=== PATIENT | female | born 1995 | race Caucasian/White ===

== ENCOUNTER 2019-11-26 18:54 | Emergency (ER) | payer OTHER, SELFPAY ==
[2019-11-26 19:00] VITALS: BP 116/63; PULSE 95; RESP 16; TEMP 36.4; O2SAT 99
--- NOTE | 2019-11-26 19:12 | ED.BACK ---
HPI - Back Pain/Injury General Chief Complaint: Back Pain/Injury Stated Complaint: back pain Time Seen by Provider: 11/26/19 19:13 Source: patient and RN notes reviewed History of Present Illness HPI Narrative: Patient is a 24-year-old female that presents the urgent care with complaints of right low back pain. Patient states that it started over the last few days and she called her OB and they were not impressed . Patient is currently 37 weeks . Patient states that her OB is aware and patient does not feel like she is having contractions or any signs or symptoms of labor. Patient denies any urinary symptoms. Patient states it is difficult to walk after sitting for long periods due to the pain radiating down the right leg. Patient states it is difficult to put on socks or shoes due to the pain. Patient denies any history of sciatica. No other acute complaints. No acute distress noted. Patient read the plan of care. Related Data Home Medications Medication Instructions Recorded Confirmed ferrous sulfate [Iron (ferrous 325 mg PO DAILY 11/24/19 11/26/19 sulfate)] valacyclovir [Valtrex] 500 mg PO DAILY 11/24/19 11/26/19 Allergies Allergy/AdvReac Type Severity Reaction Status Date / Time Oyster Allergy Severe HIVES,THROAT Uncoded 11/26/19 19:05 [place] Review of Systems Review of Systems: Narrative: CONSTITUTIONAL: Denies fever, chills, or sweats. EYES: Denies visual changes, redness, or discharge. ENT: Denies rhinorrhea, congestion, sore throat, or otalgia. CARDIOVASCULAR: Denies chest pain, palpitations, or edema. RESPIRATORY: Denies cough or dyspnea. GASTROINTESTINAL: Denies abdominal pain, nausea, vomiting, or diarrhea. GENITOURINARY: Denies dysuria or hematuria. SKIN: Denies rash or itching. MUSCULOSKELETAL: Reports of low right back pain radiating down the right leg NEUROLOGIC: Denies headache, numbness, or weakness. All other systems reviewed are negative, except as documented in HPI. [facility] Family History Family History (Updated 11/24/19 @ 13:33 by Joslyn Corrales RN) Father Diabetes mellitus Social History Social History Substance use: never Gender identity (if verbalized by the patient): Female Spiritual care concerns: No Comments At the time of my signature, I reviewed and agree with the nursing past medical, surgical, social, and family history. There is no relevant family history pertinent to the patient complaint. Exam Narrative: Exam Narrative: GENERAL: This is a well-nourished, well-developed patient, in no apparent distress. HEAD: normocephalic, atraumatic. EYES: PERRL. Sclera clear/white. Vision is grossly intact. EARS: External ears normal NOSE: External nose normal with no obvious nasal discharge THROAT: Mucous membranes moist NECK: Neck supple CARDIOVASCULAR: Regular rate and rhythm without murmurs, gallops, or rubs. RESPIRATORY: Clear to auscultation. Breath sounds equal bilaterally. No wheezes, rales, or rhonchi. SKIN: warm, intact with no suspicious lesions or rash, good texture and turgor. NEURO: awake, alert, and oriented to person, place and time. There were no obvious focal neurologic abnormalities. EXTREMITIES: No clubbing, cyanosis, or edema. BACK: Moderate tenderness to right piriformis region with positive right SLE Course Vital Signs Vital signs: Vital Signs Temperature 97.6 F 11/26/19 19:00 Pulse Rate 95 11/26/19 19:00 Respiratory Rate 16 11/26/19 19:00 Blood Pressure 116/63 11/26/19 19:00 Pulse Oximetry 99 11/26/19 19:00 Temperature 97.6 F 11/26/19 19:00 Pulse Rate 95 11/26/19 19:00 Respiratory Rate 16 11/26/19 19:00 Blood Pressure 116/63 11/26/19 19:00 Pulse Oximetry 99 11/26/19 19:00 Reviewed MDM - Back Pain/Injury MDM Narrative Medical decision making narrative: Advised the patient to continue using Tylenol as needed, in limited quantities due to . May do exercises that were explained t
== END 2019-11-26 19:29 | disposition home or self-care (01) ==
PROVIDERS: Emergency Provider Nurse Practitioner Family; PCP Family Medicine
DX: O99.89 Other specified diseases and conditions complicating pregnancy, childbirth and the puerperium (principal); M54.31 Sciatica, right side; Z3A.37 37 weeks gestation of pregnancy
CPT/HCPCS: 99211; G0463

== ENCOUNTER 2019-12-06 03:22 | Inpatient (IN) | payer OTHER, SELFPAY ==
--- NOTE | 2019-12-04 08:23 | PM.IMHP ---
H&P: HPI History of Present Illness Chief complaint: PREIN Narrative: Janes Smith is a 24 year old female 0-1 whose last menstrual period was 02/25/2019, who was the is for 12 20. She is admitted for repeat section. Her has been uncomplicated. She is negative for group B strep Review of Systems Review of Systems: All systems reviewed & are unremarkable except as noted in HPI and below PMFSH Family History Family History Father Diabetes mellitus Social History Social History Substance use: never Gender identity (if verbalized by the patient): Female Spiritual care concerns: No Meds Home Medications and Allergies Home Medications Medication Instructions Recorded Confirmed Type ferrous sulfate [Iron (ferrous 325 mg PO DAILY 11/24/19 11/26/19 History sulfate)] valacyclovir [Valtrex] 500 mg PO DAILY 11/24/19 11/26/19 History Allergies Allergy/AdvReac Type Severity Reaction Status Date / Time Oyster Allergy Severe HIVES,THROAT Uncoded 11/26/19 19:05 SWELLS Exam Const: General: no acute distress Eyes: General: appearance normal, both eyes and all related structures Neck: Neck: supple and no JVD Thyroid: thyroid normal Resp: Effort & Inspection: normal respiratory effort Auscultation: clear to auscultation bilaterally Cardio: Rate: regular rate Rhythm: regular rhythm GI: Inspection: normal to inspection Auscultation: normal bowel sounds, normoactive bowel sounds and other ( gravid soft uterus) : General: Yes bladder normal to palpation External Female Exam: normal external appearance Speculum Exam - Vagina: normal vaginal discharge and No vaginal bleeding Speculum Exam - Cervix: nontender Bimanual exam- vagina & uterus: bladder normal to palpation and No Cervical tenderness present OB/external & speculum: No vaginal bleeding Skin: General skin exam: no rashes or lesions noted Extrem: General: normal to inspection and no edema Psych: Mental Status: mental status grossly normal Affect: normal affect Assessment and Plan Additional Plan of impression: Term Plan section
[2019-12-06] VITALS (61 sets, daily range): BP systolic 86–120; BP diastolic 42–81; PULSE 66–117; RESP 15–23; TEMP 36.3–37.1; O2SAT 89–100; BMI 39.5
--- NOTE | 2019-12-06 05:08 | LDADM ---
This patient, Janes Smith, was admitted to Labor/Delivery/Recovery 120 on 12/06/19 at 03:22. Plans for labor, pain management and were discussed with patient. Patient/family oriented to hospital policies and general routines including ID bracelet, bed and alarms, visiting hours, pain management, procedures, bathroom and other care routines, personal items, smoking policy, room service/diet and guest tray routines, security routines, and visiting hours. Patient/Family are encouraged to report perceived risks to care and to ask questions if they do not understand what they are told or what they should do. See OBIX for further documentation.
[2019-12-06 05:15] LABS: Basophils Percent Auto 0.2 % (0.2-1.2); Eosinophils Absolute Auto 0.2 K/mm3 (0-0.3); Hematocrit 30.7 % (37.0-47.0); Immature Granulocyte Absolute 0.09 K/mm3 (0.00-0.031); Immature Granulocyte Percent A 0.6 % (0-0.5); Lymphocytes Percent Auto 15.6 % (18.3-44.2); Mean Corpuscular HGB Conc 29.3 g/dl (32-36); Mean Corpuscular Hemoglobin 21.6 pg (26-34); Mean Corpuscular Volume 73.6 fl (80-100); Mean Platelet Volume 10.4 fl (7.4-10.4); Monocytes Absolute Auto 0.9 K/mm3 (0.1-0.6); Monocytes Percent Auto 5.7 % (2.6-8.5); Neutrophils Absolute Auto 12.3 K/mm3 (1.3-6.7); Neutrophils Percent Auto 76.9 % (45.5-73.1); Platelet Count Result 262 k/mm3 (150-375); Red Blood Count 4.17 M/mm3 (4.2-5.4)
[2019-12-06] MEDS: LACTATED RINGERS 1,000 ML 125 ML IV CONT ×2 (05:27→06:31)
--- NOTE | 2019-12-06 06:49 | P.PNAN_ITS ---
Anes - Initial Pre Proc Eval Procedure: Operation Date: 12/08/19 07:30 Proposed Procedures p Repeat Section with Bilateral Tubal Ligation - Vikas King MD Date/Time: 12/06/19 06:49 Surgeon: Harrison Roque MD Pre Op Diagnosis: CTX Patient Data Age: 24 Gender: F Height: 5 ft 1 in Weight: 95 kg Last Vital Signs Pulse 82 12/06/19 06:16 BP 114/65 12/06/19 06:16 Allergies Allergy/AdvReac Type Severity Reaction Status Date / Time Oyster Allergy Severe HIVES,THROAT Uncoded 11/26/19 19:05 SWELLS Home Medications Medication Instructions Recorded Confirmed Type ferrous sulfate [Iron (ferrous 325 mg PO DAILY 11/24/19 11/26/19 History sulfate)] valacyclovir [Valtrex] 500 mg PO DAILY 11/24/19 11/26/19 History Laboratory Tests 12/06/19 12/06/19 05:05 05:05 WBC Pending RBC Pending Hgb Pending Hct Pending MCV Pending MCH Pending MCHC Pending RDW Pending Plt Count Pending MPV Pending Immature Gran % (Auto) Pending Neut % (Auto) Pending Lymph % (Auto) Pending [place] % (Auto) Pending Eos % (Auto) Pending Baso % (Auto) Pending Lymph # (Auto) Pending [place] # (Auto) Pending Eos # (Auto) Pending Baso # (Auto) Pending Abs Immat Gran (auto) Pending Absolute Neuts (auto) Pending Absolute Nucleated RBC Pending Nucleated RBC % Pending RPR Pending Patient hx anesthesia problems: none Family hx anesthesia problems: none PMFSH Past Medical History Medical History Anxiety Bipolar 1 disorder Depression Family History Family History Father Diabetes mellitus Social History Social History Smoking status: Never smoker Substance use: never Gender identity (if verbalized by the patient): Female Spiritual care concerns: No Anes - Eval Final PreProcedure Day of Procedure 12/06/19 06:49 Patient weight: morbidly obese Neurological: alert and oriented Last oral intake: >/= 8 hours ASA classification: III Emergent: no Anesthetic plan: proceed Anesthesia type and monitoring: regional spinal and standard monitoring Informed Consent: The patient's anesthetic plan and its attendant risks and benefits were discussed with the patient/family/POA. Questions were solicited and answers provided to the satisfaction of the patient/family/POA.
--- NOTE | 2019-12-06 07:22 | PM.IMHP ---
H&P: HPI History of Present Illness Chief complaint: CTX Narrative: Janes Smith is a 24 year old female at 38w6d who presents in labor. She states contractions started at 0100. She endorses good FM. She denies vaginal bleeding or LOF. Her is complicated by history of delivery. Review of Systems Cardiovascular: Cardiovascular: Denies chest pain, Denies leg edema, Denies palpitations, Denies dyspnea and Denies dyspnea on exertion Respiratory: Respiratory: Denies cough, Denies dyspnea and Denies dyspnea on exertion Gastrointestinal: Gastrointestinal: Denies abdominal pain, Denies constipation, Denies diarrhea, Denies nausea and Denies vomiting Genitourinary: Genitourinary: Denies hematuria, Denies urinary frequency, Denies dysuria, Denies pelvic pain, Denies urinary incontinence and Denies vaginal discharge Neurologic: Reports system reviewed and no additional complaints, except as documented Psychiatric: Psychiatric: Reports no additional psychiatric complaints Endocrine: Endocrine: Denies palpitations PMFSH Past Medical History Medical History Anxiety Bipolar 1 disorder Depression Family History Family History Father Diabetes mellitus Social History Social History Smoking status: Never smoker Substance use: never Gender identity (if verbalized by the patient): Female Spiritual care concerns: No Meds Home Medications and Allergies Home Medications Medication Instructions Recorded Confirmed Type ferrous sulfate [Iron (ferrous 325 mg PO DAILY 11/24/19 11/26/19 History sulfate)] valacyclovir [Valtrex] 500 mg PO DAILY 11/24/19 11/26/19 History Allergies Allergy/AdvReac Type Severity Reaction Status Date / Time Oyster Allergy Severe HIVES,THROAT Uncoded 11/26/19 19:05 SWELLS Vital Signs Vital Signs - 24 hr 12/06/19 04:46 12/06/19 05:19 12/06/19 06:04 Pulse Rate 90 87 80 Blood Pressure 117/80 108/42 L 119/63 12/06/19 06:16 Pulse Rate 82 Blood Pressure 114/65 Exam Const: General: no acute distress Eyes: EOM: EOMs intact bilaterally Neck: Neck: supple Thyroid: thyroid normal Chest: Breast/axilla inspection: normal inspection of the breasts Breast/axilla palpation: normal palpation of the breasts, normal palpation of the axillae and no axillary lymphadenopathy Resp: Effort & Inspection: normal respiratory effort Auscultation: clear to auscultation bilaterally Cardio: Rate: regular rate Rhythm: regular rhythm GI: Inspection: non-distended GI Palp: Yes Soft to palpation, No Tenderness to palpation present (GI) and No Guarding due to palpation present (GI) Auscultation: normal bowel sounds Other: Gravid, non-tender, size equal to dates : General: No bladder normal to palpation External Female Exam: normal external appearance Speculum Exam - Vagina: normal vaginal discharge and No vaginal bleeding Speculum Exam - Cervix: nontender Bimanual exam- vagina & uterus: No bladder normal to palpation and No Cervical tenderness present OB/external & speculum: No vaginal bleeding Skin: General skin exam: normal color and no rashes or lesions noted Neuro: Cognition (Neuro): normal cognition Speech: normal speech Extrem: General: normal to inspection and no edema Psych: Mental Status: mental status grossly normal Affect: normal affect H&P: Results Labs Labs: Short CBC 12/06/19 Range/Units 05:05 WBC 16.0 H (4.5-10.0) K/mm3 Hgb 9.0 L (12.0-15.0) g/dL Hct 30.7 L (37.0-47.0) % Plt Count 262 (150-375) k/mm3 Assessment and Plan Assessment and plan (1) Supervision of other high risk pregnancies, unspecified trimester: Code(s): O09.899 - Supervision of other high risk pregnancies, unspecified trimester Status: Acute Assessm
--- NOTE | 2019-12-06 08:47 | PM.PROC ---
Procedure Note - Detailed Date of procedure: 12/06/19 Pre-op diagnosis: CTX labor previous C/S desires permanent sterilization Post-op diagnosis: same Procedure performed: repeat low transverse section bilateral tubal ligation Description of procedure: The patient was taken to the operating room where epidural anesthesia was found to be adequate. She was then prepped and draped in the usual sterile fashion in the dorsal supine position with a leftward tilt. A Pfannenstiel skin incision was then made with the scalpel and carried through to the underlying layer of fascia. The fascia was then incised in the midline and the incision extended laterally with the Ortiz scissors. The superior aspect of the fascia was then grasped with the Andre clamps, elevated, and the underlying rectus muscles dissected off bluntly and sharply. Attention was then turned to the inferior aspect of this incision which, in a similar fashion, was grasped, tented up with the Andre clamps, and the rectus muscles dissected off both bluntly and sharply. The rectus muscles were then in the midline, and the peritoneum identified, tented up, and entered sharply with the Metzenbaum scissors. The peritoneal incision was then extended superiorly and inferiorly with good visualization of the bladder. The bladder blade was then inserted and the vesicouterine peritoneum identified, grasped with the pick-ups and entered sharply with the Metzenbaum scissors. This incision was then extended laterally and the bladder flap created digitally. The bladder blade was then reinserted and the lower uterine segment incised in a low, transverse fashion with the scalpel. The uterine incision was then extended laterally bluntly. The bladder blade was removed and the infant?s head delivered atraumatically. The nose and mouth were suctioned with the bulb suction, and the remainder of the infant was delivered atraumatically. The cord was clamped and cut. The was handed off to the waiting pediatricians (staff). Cord gasses were sent. The placenta was then removed manually, the uterus exteriorized, and cleared of all clots and debris. The uterine incision was repaired with 0 vicryl in a running fashion. Both fallopian tubes were identified and followed out to the fimbrae bilaterally. The left fallopian tube was grasped with Babcocks and elevated to identify an avascular space in the mesosalpinx. A window was then made in the mesosalpinx of the fallopian tube using Bovie cautery. Chromic suture was then passed through the window at the mid-isthmic portion of the fallopian tube. The tube was then suture ligated x 2 and an approximately 2-3 cm portion was removed. The same procedure was repeated for the right fallopian tube. The uterus was returned to the abdomen. The uterus was then reinspected to ensure hemostasis as were all subfascial tissues. The peritoneum was re-approximated with vicryl in a running fashion. The fascia was reapproximated with 0 vicryl in a running fashion. The subcutaneous layer was copiously irrigated to clear any clots or debris. The subcutaneous tissue was reapproximated using 3-0 Vicryl in a running fashion. The skin was closed with 4-0 vicryl. The patient tolerated the procedure well. Sponge, lap and needle counts were correct times three. The patient was taken to the recovery room in stable condition. Anesthesia: spinal Surgeon: Harrison Roque MD Estimated blood loss (mL): 480 IV fluids (mL): 1,000 Urine output (mL): 150 Drains: No Packing: No Pathology: none sent Complications: No immediate complications Condition: stable Disposition: floor ( ) Findings: normal appearing uterus and bilateral fallopian tubes and ovaries
[2019-12-06] MEDS: MORPHINE SULFATE 2 MG/ML INJ 3 MG IV PUSH ×2 (10:03→10:41)
[2019-12-06] MEDS: OXYTOCIN 30 UNITS/NS 500 ML 30 UNITS/500 ML BAG 125 UNITS IV CONT (10:04)
--- NOTE | 2019-12-06 11:20 | PC.NURSE ---
PT arrived on unit via stretcher and was moved to bed via maxi air without difficulty. PT awake and alert and oriented to room 280 and surroundings. PT introductions made and plan of care discussed per post op c section, pain management, bottle feeding, daily care activities. Welcome packet reviewed and discussed. PT verbalized understanding of such care.
[2019-12-06] MEDS: DEXTROSE 5%/0.45% SOD CHL 1,000 ML 125 ML IV CONT (13:30)
[2019-12-06] MEDS: IBUPROFEN 600 MG TABLET PO ×2 (13:35→20:17)
[2019-12-06] MEDS: SIMETHICONE 80 MG TAB.CHEW PO ×3 (13:35→20:16)
[2019-12-06] MEDS: DOCUSATE SODIUM 100 MG CAPSULE PO ×2 (17:32→17:45)
[2019-12-06] MEDS: POLYSACCHARIDE IRON COMPLEX 150 MG CAPSULE PO (17:34)
[2019-12-07] MEDS: IBUPROFEN 600 MG TABLET PO ×3 (03:19→18:50)
[2019-12-07 03:55] VITALS: BP 123/79; PULSE 100; RESP 18; TEMP 37.1; O2SAT 99
[2019-12-07 04:51] LABS: Basophils Percent Auto 0.2 % (0.2-1.2); Eosinophils Absolute Auto 0.1 K/mm3 (0-0.3); Eosinophils Percent Auto 0.7 % (0-4.4); Hematocrit 25.3 % (37.0-47.0); Hemoglobin 7.5 g/dL (12.0-15.0); Immature Granulocyte Absolute 0.07 K/mm3 (0.00-0.031); Immature Granulocyte Percent A 0.4 % (0-0.5); Lymphocytes Absolute Auto 1.57 K/mm3 (0.9-3.2); Lymphocytes Percent Auto 8.2 % (18.3-44.2); Mean Corpuscular HGB Conc 29.6 g/dl (32-36); Mean Corpuscular Hemoglobin 22.1 pg (26-34); Mean Corpuscular Volume 74.6 fl (80-100); Mean Platelet Volume 10.6 fl (7.4-10.4); Monocytes Absolute Auto 1.2 K/mm3 (0.1-0.6); Monocytes Percent Auto 6.4 % (2.6-8.5); Neutrophils Percent Auto 84.1 % (45.5-73.1); Platelet Count Result 235 k/mm3 (150-375); Red Blood Count 3.39 M/mm3 (4.2-5.4); White Blood Count 19.1 K/mm3 (4.5-10.0)
--- NOTE | 2019-12-07 06:50 | PC.NURSE ---
PT introductions made and plan of care discussed per post op c section, pain management, bottle feeding, daily care activities. PT verbalized understanding of such care.
--- NOTE | 2019-12-07 07:42 | P.PNOB_ITS ---
OB - PN: Subj Subjective Date/time seen: 12/07/19 07:42 Interval history: Patient doing well this AM. she is ambulating without difficulty. She is tolerating PO without N/V. She reports adequate pain control. Her bleeding is normal and she reports normal lochia. She denies fever, chills, N/V. She has not yet passed flatus. Patient comments: no complaints and pain well controlled; no flatus present OB - PN: Obj Data Labs CBC & Chem 7: 12/07/19 04:14 Labs: Laboratory Results - last 24 hr 12/07/19 04:14 WBC 19.1 H RBC 3.39 L Hgb 7.5 L Hct 25.3 L MCV 74.6 L MCH 22.1 L MCHC 29.6 L RDW 17.0 H Plt Count 235 MPV 10.6 H Immature Gran % (Auto) 0.4 Neut % (Auto) 84.1 H Lymph % (Auto) 8.2 L [place] % (Auto) 6.4 Eos % (Auto) 0.7 Baso % (Auto) 0.2 Lymph # (Auto) 1.57 [place] # (Auto) 1.2 H Eos # (Auto) 0.1 Baso # (Auto) 0.0 Abs Immat Gran (auto) 0.07 H Absolute Neuts (auto) 16.0 H Absolute Nucleated RBC 0.0 Nucleated RBC % 0.0 OB - PN A/P Plan day: 1 Plan: routine care Comments: patient doing well this AM advance diet as tolerated H/H 7.01/25 continue routine PP care awaiting flatus plan for infant circumcision today Time Spent With Patient Time: Total time spent is greater than 50% in coordination of care (as document ed) at patient's floor/unit and/or counseling patient: Time with patient: less than 15 minutes Review of Systems Constitutional: Constitutional: Reports no additional constitutional complaints Cardiovascular: Cardiovascular: Reports no additional cardiovascular complai nts Respiratory: Respiratory: Reports no additional respiratory complaints Gastrointestinal: Gastrointestinal: Reports no additional gastrointestinal complaints Genitourinary: Genitourinary: Reports no additional female genitourinary complaints Exam Const: General: comfortable and no acute distress Resp: Effort & Inspection: normal respiratory effort Auscultation: clear to auscultation bilaterally Cardio: Rate: regular rate GI: GI Palp: Yes Soft to palpation and Yes Tenderness to palpation present (GI) (appropriately tender around incision ) Auscultation: normal bowel sounds Other: fundus firm and below umbilicus Incision C/D/I Urinary Catheter: Urinary Catheter: urine clear Psych: Appearance: grossly normal Mental Status: mental status grossly normal Affect: normal affect
--- NOTE | 2019-12-07 09:29 | WPDANLDNPN2 ---
Anes-Prog Note L&D-Neuraxial Date/Time: 12/07/19 09:29 Neuraxial medications: intrathecal PF morphine Opiod-related complaints: pruritis moderate, treatment effective Patient feedback: Patient satisfied with post-operative pain management.
--- NOTE | 2019-12-07 09:29 | WPDANLDPN2 ---
Anes-Prog Note L&D Date/Time: 12/07/19 09:29 Comfortable throughout: section Neuraxial method: spinal Epidural/Spinal procedure site: clean & non-tender Neuro status: Neuro function grossly intact. Cardiovascular status: normal Respiratory status: normal Airway patency: baseline Mental status: baseline Post-Op hydration status: normal Vital Signs: Last Vital Signs Temp 98.7 F 12/07/19 03:55 Pulse 100 12/07/19 03:55 Resp 18 12/07/19 03:55 BP 123/79 12/07/19 03:55 Pulse Ox 99 12/07/19 03:55 I/O: Intake & Output 12/06/19 12/07/19 12/07/19 23:59 07:59 15:59 Intake Total 440 1700 Output Total 2100 2750 Balance -1660 -1050 Patient feedback: Patient satisfied with anesthetic care.
[2019-12-07] MEDS: SIMETHICONE 80 MG TAB.CHEW PO ×3 (10:28→22:42)
[2019-12-07] MEDS: DOCUSATE SODIUM 100 MG CAPSULE PO ×2 (10:28→15:33)
[2019-12-07] MEDS: POLYSACCHARIDE IRON COMPLEX 150 MG CAPSULE PO ×2 (10:29→15:34)
[2019-12-07 10:45] VITALS: BP 115/64; PULSE 101; RESP 18; TEMP 36.6; O2SAT 100; O2SAT 99
[2019-12-07 19:45] VITALS: BP 121/71; PULSE 109; RESP 12; TEMP 36.6
[2019-12-08] MEDS: IBUPROFEN 600 MG TABLET PO (04:17)
--- NOTE | 2019-12-08 07:01 | P.DS_ITS ---
DS: Diagnosis Admitting Diagnosis Admitting Diagnosis: Suterm/prev c section/sterilizationpervision of other high risk pregnancies, unspecified trimester DS: Summary Time Spent with Patient Time attestation: Total time spent providing and/or coordinating discharge services: Exam Const: General: no acute distress Eyes: General: appearance normal, both eyes and all related structures Neck: Neck: supple and no JVD Thyroid: thyroid normal Resp: Effort & Inspection: normal respiratory effort Auscultation: clear to auscultation bilaterally Cardio: Rate: regular rate Rhythm: regular rhythm GI: Inspection: non-distended GI Palp: Yes Soft to palpation, No Tenderness to palpation present (GI) and No Guarding due to palpation present (GI) Auscultation: normal bowel sounds : General: Yes bladder normal to palpation External Female Exam: normal external appearance Speculum Exam - Vagina: normal vaginal discharge and No vaginal bleeding Speculum Exam - Cervix: nontender Bimanual exam- vagina & uterus: bladder normal to palpation and No Cervical tenderness present OB/external & speculum: No vaginal bleeding Skin: General skin exam: no rashes or lesions noted Extrem: General: normal to inspection and no edema Psych: Mental Status: mental status grossly normal Affect: normal affect DS: Data Data Completed and Pending Pending studies at discharge: Pending at discharge 12/06/19 08:17 Surgical [PTH] Routine Discharge Plan Discharge Attending physician on discharge: Vikas King Discharging Clinician: Vikas King Patient Disposition: Home, Self-Care Activity: may shower, no straining, may drive after 2 weeks and pelvic rest Diet: heart healthy Wound Care Instructions: follow printed instructions Patient Instructions: Antibiotic Form Stand Alone Forms: General Discharge Information Follow-up/Referrals: Vikas King MD [Physician] - Discharge Medications: New hydrocodone-acetaminophen [[place]] 5-325 mg tablet 1 tablet PO Q4H PRN (Reason: pain) Qty: 30 RF: 0 No Action valacyclovir [Valtrex] 500 mg Tablet 500 mg PO DAILY RF: 0 ferrous sulfate [Iron (ferrous sulfate)] 325 mg (65 mg iron) Tablet 325 mg PO DAILY RF: 0 Date of admission: 12/06/19 03:22 Primary Care Provider: JaimeJocy Admitting Provider: Harrison Roque Attending physician on admission: Harrison Roque
--- NOTE | 2019-12-08 07:02 | PM.OBPNVD ---
OB - PN: Subj Subjective Date/time seen: 12/08/19 07:02 Patient comments: no complaints and pain well controlled OB - PN: Obj Data Labs CBC & Chem 7: 12/07/19 04:14 OB - PN A/P Plan day: 3 Plan: routine care, discharge home and follow up 6 weeks (4 weeks) Time Spent With Patient Time: Total time spent is greater than 50% in coordination of care (as documented) at patient's floor/unit and/or counseling patient: Time with patient: less than 15 minutes Review of Systems Review of Systems: All systems reviewed & are unremarkable except as noted in HPI and below Exam Const: General: no acute distress Eyes: General: appearance normal, both eyes and all related structures Neck: Neck: supple and no JVD Thyroid: thyroid normal Resp: Effort & Inspection: normal respiratory effort Auscultation: clear to auscultation bilaterally Cardio: Rate: regular rate Rhythm: regular rhythm GI: Inspection: normal to inspection and incision (cdi) Percussion: Yes normal to percussion : General: Yes bladder normal to palpation External Female Exam: normal external appearance Speculum Exam - Vagina: normal vaginal discharge and No vaginal bleeding Speculum Exam - Cervix: nontender Bimanual exam- vagina & uterus: bladder normal to palpation and No Cervical tenderness present OB/external & speculum: No vaginal bleeding Skin: General skin exam: no rashes or lesions noted Extrem: General: normal to inspection and no edema Psych: Mental Status: mental status grossly normal Affect: normal affect
[2019-12-08 07:25] VITALS: BP 107/66; PULSE 78; RESP 16; TEMP 36.7; O2SAT 98
[2019-12-08 08:03] LABS: Rapid Plasma Reagin Non-Reactive (NonReactive)
[2019-12-08] MEDS: POLYSACCHARIDE IRON COMPLEX 150 MG CAPSULE PO (09:30)
[2019-12-08] MEDS: DOCUSATE SODIUM 100 MG CAPSULE PO (09:30)
[2019-12-10 09:25] VITALS: BP 120/79; PULSE 89; RESP 20; TEMP 37.3
== END 2019-12-08 10:45 | disposition home or self-care (01) | DRG 540 ==
LOC: ANHLDR 04:52 → ANHOB2 12-08 07:01 → ANHLDR 12-11 07:33 → ANHOB2 12-11 07:33
PROVIDERS: Admitting Provider Student in an Organized Health Care Education/Training Program; PCP Family Medicine; Visit Provider Obstetrics & Gynecology
DX: O34.211 Maternal care for low transverse scar from previous cesarean delivery (principal); Z3A.38 38 weeks gestation of pregnancy; Z37.0 Single live birth; Z23 Encounter for immunization; Z30.2 Encounter for sterilization
CPT/HCPCS: 36415; 85025; 86592; 86850; 86900; 86901; 88302; A9270; J1200; J2250; J2270; J2274; J2590; J3010; J7120

== ENCOUNTER 2020-02-02 10:49 | Emergency (ER) | payer OTHER, SELFPAY ==
[2020-02-02 10:55] VITALS: BP 105/50; PULSE 68; RESP 16; TEMP 37; O2SAT 100
--- NOTE | 2020-02-02 11:04 | ED.SKABFB ---
HPI - Skin/Abscess/Foreign Bdy General Chief complaint: Skin/Abscess/Foreign Body Stated complaint: fever/sunburn/nausea/dizzy Time Seen by Provider: 02/02/20 11:04 Source: patient Mode of arrival: ambulatory Limitations: no limitations History of Present Illness HPI narrative: Janes Smith is a 24 yo female with no prior medical history, who tattoo on her middle back on Sunday afternoon and got a sunburn on her shoulders and back on Sunday. She says that the pain is almost unbearable, has tried a cool bath ice, and Solarcaine with lidocaine lotion Related Data Home Medications Medication Instructions Recorded Confirmed phentermine 37.5 mg PO DAILY 02/02/20 02/02/20 venlafaxine 75 mg PO DAILY 02/02/20 02/02/20 Allergies Allergy/AdvReac Type Severity Reaction Status Date / Time Oyster Allergy Severe HIVES,THROAT Uncoded 11/26/19 19:05 SWELLS Review of Systems Review of Systems: Narrative: CONSTITUTIONAL: Denies fever, chills, sweats. EYES: Denies visual changes, redness, discharge. ENT: Denies rhinorrhea, congestion, sore throat, otalgia. CARDIOVASCULAR: Denies chest pain, palpitations, edema. RESPIRATORY: Denies dyspnea, wheezing, cough GASTROINTESTINAL: Denies abdominal pain, nausea, vomiting, diarrhea. GENITOURINARY: Denies dysuria, hematuria, abnormal discharge SKIN: Denies rash or itching. Sunburn across shoulders that is very tender and painful, new tattoo upper back, above shoulder blades NEUROLOGIC: Denies numbness, or focal weakness. PSYCHIATRIC: Denies anxiety or depression. [facility] Past Medical History Medical History Anxiety Bipolar 1 disorder Depression Family History Family History Father Diabetes mellitus Social History Social History Smoking status: Never smoker Substance use: never Gender identity (if verbalized by the patient): Female Spiritual care concerns: No Comments At time of signature, I agree with nursing past medical, surgical, social and family history. There is no relevant family history pertinent to the presenting complaint. Exam Narrative: Exam Narrative: GENERAL: This is a well-nourished, well-developed patient, in mild distress. HEAD: normocephalic, atraumatic. EYES: Sclera clear/white. Vision is grossly intact. EARS: External ears normal, Hearing grossly intact. NOSE: External nose normal without nasal discharge, nares without redness, no rhinorrhea. THROAT: Mucous membranes moist, NECK: Neck supple, CARDIOVASCULAR: Regular rate and rhythm without murmurs, gallops, or rubs. RESPIRATORY: Clear to auscultation. Breath sounds equal bilaterally. No wheezes, rales, or rhonchi. GASTROINTESTINAL: Abdomen soft, non-tender, SKIN: warm, intact -sunburn shoulders and mid back, new tattoo between shoulders, very tender and warm NEURO: awake, alert, and oriented to person, place and time. There were no obvious focal neurologic abnormalities. Steady gait EXTREMITIES: Normal range of motion. BACK: Nontender without deformity Course Course Emergency Course: Started on Toradol and lidocaine gel Vital Signs Vital signs: Vital Signs Temperature 98.6 F 02/02/20 10:55 Pulse Rate 68 02/02/20 10:55 Respiratory Rate 16 02/02/20 10:55 Blood Pressure 105/50 L 02/02/20 10:55 Pulse Oximetry 100 02/02/20 10:55 Temperature 98.6 F 02/02/20 10:55 Pulse Rate 68 02/02/20 10:55 Respiratory Rate 16 02/02/20 10:55 Blood Pressure 105/50 L 02/02/20 10:55 Pulse Oximetry 100 02/02/20 10:55 MDM - Skin/Abscess/Foreign Bdy Differential Diagnosis Differential diagnosis: Likely cellulitis and other (Sunburn, new tattoo) Discharge Plan Discharge Clinical Impression: 1st degree sunburn, Tattoo Patient Disposition: Home, Self-Care Condition: Stable Instructions: Sunvanda
== END 2020-02-02 11:26 | disposition home or self-care (01) ==
PROVIDERS: Emergency Provider Nurse Practitioner; PCP Family Medicine
DX: L55.0 Sunburn of first degree (principal); L81.8 Other specified disorders of pigmentation
CPT/HCPCS: 99213; G0463

== ENCOUNTER 2022-07-14 16:35 | Emergency (ER) | payer OTHER, SELFPAY ==
[2022-07-14 16:45] VITALS: BP 121/78; PULSE 93; RESP 14; TEMP 36.7; O2SAT 99
--- NOTE | 2022-07-14 17:02 | ED.URI ---
HPI - URI/Sore Throat General Chief Complaint: Upper Respiratory Infection Stated Complaint: cough and moving to chest Time Seen by Provider: 07/14/22 17:00 Source: patient and RN notes reviewed Mode of arrival: ambulatory Limitations: no limitations History of Present Illness HPI Narrative: 26 y/o female presented for c/o nonproductive cough for 4 days. Endorses mild sinus congestion and drainage. Endorses chest friedman with coughing. Denies sob, wheezing, n/v/d/f/c. Taking mucinex and Dayquil without relief. Endorses her kids have similar symptoms, tested negative for flu covid and strep. MD elicited complaint: cough Related Data Home Medications Medication Instructions Recorded Confirmed dextroamphetamine-amphetamine ER 20 mg PO DAILY 07/14/22 07/14/22 20 mg 24hr capsule,extend release (Adderall XR) Allergies Allergy/AdvReac Type Severity Reaction Status Date / Time Oyster Allergy Severe HIVES,THROAT Uncoded 07/14/22 16:51 SWELLS Review of Systems Review of Systems: CONSTITUTIONAL: Denies malaise, chills, sweats, fever EYES: Denies visual changes, redness, or discharge ENT: Reports rhinorrhea, denies sinus pain, otalgia, sore throat CARDIOVASCULAR: Denies chest pain, palpitations, edema RESPIRATORY: Reports cough, post nasal drainage. Denies dyspnea GASTROINTESTINAL: Denies abdominal pain, nausea, vomiting, diarrhea SKIN: Denies rash or itching PMFSH Past Medical History Medical History (Updated 07/14/22 @ 17:14 by Dina Reddy APRN) Anxiety Bipolar 1 disorder Depression Family History Family History Father Diabetes mellitus Social History Social History Smoking status: Never smoker Substance use: never Gender identity (if verbalized by the patient): Female Spiritual care concerns: No Exam Narrative: GENERAL: well-appearing EYES: conjunctivae clear ENT: Mucous membranes moist. TMs pearly escalante with dull light reflex bilaterally; no tragal tenderness. Oropharynx erythematous, tonsils enlarged 2+ without lesions or exudate, no drooling, no hoarseness, no trismus, uvula midline. NECK: Supple. No lymphadenopathy CHEST: Clear to auscultation, breath sounds equal. Frequent [employer]GR[employer] cough. No wheezing, rhonchi, rales, or stridor. No respiratory distress, speaks in full sentences. HEART: Regular rate and rhythm. SKIN: Warm, dry, no rash. NEURO: Alert and oriented x3. Course Course Emergency Course: Patient is aware of diagnosis, understands and agrees to treatment plan. Anticipatory guidance given. Patient agrees to follow-up as directed and is aware of reasons to seek care at the emergency department. Portions of this record may have been created with voice recognition software Level of Care: Express Care Visit Vital Signs Vital signs: Vital Signs Temperature 98.1 F 07/14/22 16:45 Pulse Rate 93 07/14/22 16:45 Respiratory Rate 14 07/14/22 16:45 Blood Pressure 121/78 07/14/22 16:45 Pulse Oximetry 99 07/14/22 16:45 Oxygen Delivery Room Air 07/14/22 16:45 Temperature 98.1 F 07/14/22 16:45 Pulse Rate 93 07/14/22 16:45 Respiratory Rate 14 07/14/22 16:45 Blood Pressure 121/78 07/14/22 16:45 Pulse Oximetry 99 07/14/22 16:45 Oxygen Delivery Room Air 07/14/22 16:45 reviewed MDM - URI/Sore Throat MDM Narrative Medical decision making narrative: Advised supportive measures and signs/symptoms to go to the ER. Pt is appropriate for outpt treatment and f/u. Differential Diagnosis Differential diagnosis: Likely upper respiratory infection, sinusitis and viral infection Discharge Plan Discharge Clinical Impression: Cough Patient Disposition: Home, Self-Care Condition: Stable Instructions: Upper Respiratory Infection (ED) Additional Instructions: Recommend Zyrtec (or Claritin/Dee) for sinus congestio
== END 2022-07-14 17:10 | disposition home or self-care (01) ==
PROVIDERS: Emergency Provider Nurse Practitioner Family; PCP Family Medicine
DX: R05.9 Cough, unspecified (principal)
CPT/HCPCS: 99213; G0463

== ENCOUNTER 2023-08-01 19:19 | Emergency (ER) | payer SELFPAY ==
--- NOTE | 2023-08-01 19:21 | ED.URI ---
HPI - URI/Sore Throat General Chief Complaint: Upper Respiratory Infection Stated Complaint: Sore Throat Time Seen by Provider: 08/01/23 19:21 Source: patient Mode of arrival: ambulatory Limitations: no limitations History of Present Illness HPI Narrative: Janes is a 27-year-old female patient presenting to the clinic today with complaints of a sore throat x3 days. She reports she has had runny nose and congestion for approximately 9 days but sore throat has been getting worse for 3 days. No fever or chills. Has pain swallowing MD elicited complaint: sore throat and nasal congestion Related Data Home Medications Medication Instructions Recorded Confirmed dextroamphetamine-amphetamine ER 20 mg PO DAILY 07/14/22 08/01/23 20 mg 24hr capsule,extend release (Adderall XR) Allergies Allergy/AdvReac Type Severity Reaction Status Date / Time Oyster Allergy Severe HIVES,THROAT Uncoded 08/01/23 19:34 SWELLS Review of Systems Review of Systems: Pertinent positives per HPI. Patient denies any fever, chills, rash, headache, visual changes, dizziness, shortness of breath, chest pain, palpitations, nausea, vomiting, diarrhea, constipation, abdominal pain, or any urinary issues. [facility] Past Medical History Medical History (Updated 08/01/23 @ 19:35 by Frank Castro APRN) Anxiety Bipolar 1 disorder Depression Family History Family History Father Diabetes mellitus Social History Social History Smoking status: Never smoker Substance use: never Gender identity (if verbalized by the patient): Female Spiritual care concerns: No Comments At the time of my signature, I reviewed and agree with the nursing past medical, surgical, social, and family history. There is no relevant family history pertinent to the patient complaint. Exam Narrative: General: Well-developed, well nourished, in no apparent distress Head: Normocephalic, atraumatic Eyes: Pupils equally round and reactive to light bilaterally, EOM intact, sclera and conjunctive clear, no discharge, lids normal Ears: TMs intact and clear, ear canals clear, no drainage, grossly hearing normal. Nose: Nares patent, clear nasal discharge, no inflammation, no sinus tenderness. Mouth: Oral pharynx red with bilateral tonsillar enlargement without lesions or masses, good dentition, MMM. Neck: Supple, trachea midline, enlargement of anterior cervical nodes, no thyroid masses or goiter palpable. Cardio: Regular rate and rhythm, s1 and s2 normal, no murmur appreciated. Resp: Clear to auscultation bilaterally, no rhonchi, rales, wheezing or rubs Course Course Emergency Course: Portions of this record may have been created with voice recognition software. Level of Care: Express Care Visit Vital Signs Vital signs: Vital signs reviewed MDM - URI/Sore Throat MDM Narrative Medical decision making narrative: At the time of visit patient is resting comfortably on exam table. Strep screen was obtained and was positive in the clinic today. Prescription for amoxicillin was sent to the pharmacy and supportive measures were discussed with the patient she voiced understanding discharge instructions agrees to treatment plan. Differential Diagnosis Differential diagnosis: Likely upper respiratory infection, otitis media, sinusitis, viral infection, bronchitis, influenza, pharyngitis and other (COVID) Discharge Plan Discharge Clinical Impression: Acute streptococcal pharyngitis Patient Disposition: Home, Self-Care Condition: Stable Instructions: Antibiotic Form, Strep Throat (ED) Additional Instructions: Take prescription medications only as prescribed-amoxicillin Change your toothbrush in 24 hours after initiation of the antibiotics Increase fluids and stay well hydrated Tylenol/motrin for pain/fever Flonase
[2023-08-01 19:24] VITALS: BP 118/75; PULSE 99; RESP 16; TEMP 36.6; O2SAT 98
== END 2023-08-01 19:38 | disposition home or self-care (01) ==
PROVIDERS: Emergency Provider Nurse Practitioner Family; PCP Family Medicine
DX: J02.0 Streptococcal pharyngitis (principal); F90.9 Attention-deficit hyperactivity disorder, unspecified type
CPT/HCPCS: 87880; 99213; G0463

== ENCOUNTER 2025-09-02 09:30 | Emergency (ER) | payer BC, SELFPAY ==
--- OUTSIDE RECORDS SUMMARY | 2025-09-02 09:36 | XMS_ITS | Data Portability ---
Author Organization [facility] [employer], Main Office Address [address] [place] [address] Assessment No assessment recorded. Plan of Treatment Reminders Order Date Submit Date Provider Last Modified By Organization Details Last Modified Time Details Appointments None recorded. Lab lh + FSH, serum 025 025 [facility], [address] [facility], [place], [address], 5 11:34:15 prolactin , serum 025 025 [facility], [address] [facility], [place], [address], 5 11:34:20 progester one, serum 025 025 [facility], [address] , [place], [address], 5 11:34:22 insulin, serum 025 025 [facility], [address] , [place], [address], 5 11:34:19 estradiol , serum 025 025 [facility], [address] [facility], [place], [address], 5 11:34:23 HbA1c (hemoglob in A1c), blood 025 025 [facility], [address] [facility], [place], [address], 5 11:34:27 CMP, serum or plasma 025 [facility], [address], [place], [address], 5 11:34:17 vitamin B12 + folate, serum or blood 025 [facility], [address], [place], [address], 5 11:34:21 TSH, serum or plasma 025 KEVAN [facility], [address], [place], [address], 5 11:34:25 vitamin D, 25-hydrox y, total, serum 025 [facility], [address], [place], [address], 5 11:34:24 magnesium , serum or plasma 025 [facility], [address], [place], [address], 5 11:34:16 drug of abuse panel, urine 025 [facility], [address], [place], [address], 5 17:05:25 Referral None recorded. Procedures None recorded. Surgeries None recorded. Imaging None recorded. Medication Orders dextroamp hetamine- amphetami ne 20 mg tablet 025 [facility], [address] [place] [address], [address], 5 09:58:12 dextroamp hetamine- amphetami ne 20 mg tablet 025 025 [facility], [address] [place] [address], [address], 5 16:27:45 dextroamp hetamine- amphetami ne 20 mg tablet [facility], [address] [facility], [place], [address], 4 16:35:35 Patient TargetsNo targets recorded. Patient InstructionsNo instructions recorded. Reason for Referral None Reported. Results Created Date Observation Date Name Description Value Unit Range Abnormal Flag Note LastModifiedBy Organization Detail LastModifiedTime 09/09/19 25 09/10/2024 DRUG MONIT OR, PANEL 3, SCREE N, URINE amphetamines POSITI VE NG/mL <500 abnormal See Note A See Note A Not Available [facility] [address], [place], [address], 09/10/2024 23:18:32 09/09/19 25 09/10/2024 DRUG MONIT OR, PANEL 3, SCREE N, URINE benzodiazepi nancy NEGATI VE NG/mL <100 See Note A See Note A Not Available [facility] [address], [place], [address], 09/10/2024 23:18:32 09/09/19 25 09/10/2024 DRUG MONIT OR, PANEL 3, SCREE N, URINE cocaine metabolite NEGATI VE NG/mL <150 See Note A See Note A Not Available [facility] [address], [place], [address], 09/10/2024 23:18:32 09/09/19 25 09/10/2024 DRUG MONIT OR, PANEL 3, SCREE N, URINE marijuana metabolite NEGATI VE NG/mL <20 See Note A See Note A Not Available [facility] [address], [place], [address], 09/10/2024 23:18:32 09/09/19 25 09/10/2024 DRUG MONIT OR, PANEL 3, SCREE N, URINE opiates NEGATI VE NG/mL <100 See Note A See Note A Not Available [facility] [address] [address] [address], [place], [address], 09/10/2024 23:18:32 09/09/19 25 09/10/2024 DRUG MONIT OR, PANEL 3, SCREE N, URINE oxycodone NEGATI VE NG/mL <100 See Note A See Note A Not Available [facility] [address], [place], [address], 09/10/2024 23:18:32 09/09/19 25 09/10/2024 DRUG MONIT OR, PANEL 3, SCREE N, URINE creatinine 199.0 mg/dL > or = 20.0 Not Available [facility] [address], [place], [address], 09/10/2024 23:18:32 09/09/19 25 09/10/2024 DRUG MONIT OR, PANEL 3, SCREE N, URINE pH 6.8 4.5-9. 0 Not Available [address], [place], [address], 09/10/2024 23:18:32 09/09/1909/10/2024 DRUG MONIT OR, PANEL 3, SCREE N, URINE oxidant NEGATI VE mcg/m L <200 Not Available [address] , [place], [address], 09/10/2024 23:18:32 09/09/1909/10/2024 DRUG MONIT ORING TEMPL ATE notes and comments This drug testi ng is for medic al treat ment only. Monica sis was perfo rmed as non-f orens ic testi ng and these resul ts shoul d be used only by [facility] provi ders to rende r diagn osis or treat ment, or to monit or progr ess of medic al condi tions . Note A: The resul ts are presu mptiv e; based only on di louise, and they have not been confi rmed by a defin itive raina michael. Healt hcare Provi ders needi ng Inter preta tion [facility] , pleas e conta ct us at 1.877 .40.R XTOX (1.87 [phone] ) M-F, 8am to 10pm EST Not Available [address] [address] [place], [address], 09/10/2024 23:18:34 12/09/19 25 12/09/2024 FSH AND LH FSH 7.2 mIU/m L normal Refer ence Range Folli cular Phase 2.5-1 0.2 Mid-c ycle Peak 3.1-1 7.7 Lutea l Phase 1.5- 9.1 Postm enopa usal 23.0- 116.3 Not Available [address] [address] [place], [address], 12/09/2024 11:34:15 12/09/19 25 12/09/2024 FSH AND LH LH 18.4 mIU/m L normal Refer ence Range Folli cular Phase 1.9-1 2.5 Mid-C ycle Peak 8.7-7 6.3 Lutea l Phase 0.5-1 6.9 Postm enopa usal 10.0- 54.7 Not Available [address] [address] [place], [address], 12/09/2024 11:34:15 12/09/1912/09/2024 MAGNE SIUM magnesium 2.2 mg/dL 1.5-2. 5 normal Not Available [address] [address] [place], [address], 12/09/2024 11:34:16 12/09/19 25 12/09/2024 COMPR EHENS GIANCARLO METAB OLIC PANEL glucose 91 mg/dL 65-99 normal Fasti ng refer ence inter abida Not Available [address] [address] [place], [address], 12/09/2024 11:34:17 12/09/19 25 12/09/2024 COMPR EHENS GIANCARLO METAB OLIC PANEL urea nitrogen (BUN) 15 mg/dL 7-25 normal Not Available [address], [address], 12/09/2024 11:34:17 12/09/19 25 12/09/2024 COMPR EHENS GIANCARLO METAB OLIC PANEL creatinine 0.84 mg/dL 0.50-0 .96 normal Not Available [address], [address], 12/09/2024 11:34:17 12/09/19 25 12/09/2024 COMPR EHENS GIANCARLO METAB OLIC PANEL eGFR 98 mL/mi n/1.7 3m2 > or = 60 normal Not Available [address], [address], 12/09/2024 11:34:17 12/09/19 25 12/09/2024 COMPR EHENS GIANCARLO METAB OLIC PANEL BUN/creatini ne ratio SEE NOTE: (calc ) 6-22 Not Repor jose de jesus: BUN and Creat inine are withi n refer ence range . Not Available [address], [address], 12/09/2024 11:34:17 12/09/19 25 12/09/2024 COMPR EHENS GIANCARLO METAB OLIC PANEL sodium 135 mmol/ L 135-14 6 normal Not Available [address], [address], 12/09/2024 11:34:17 12/09/19 25 12/09/2024 COMPR EHENS GIANCARLO METAB OLIC PANEL potassium 4.0 mmol/ L 3.5-5. 3 normal Not Available [address], [address], 12/09/2024 11:34:17 12/09/19 25 12/09/2024 COMPR EHENS GIANCARLO METAB OLIC PANEL chloride 102 mmol/ L 98-110 normal Not Available [address], [address], 12/09/2024 11:34:17 12/09/19 25 12/09/2024 COMPR EHENS GIANCARLO METAB OLIC PANEL carbon dioxide 26 mmol/ L 20-32 normal Not Available [address], [address], 12/09/2024 11:34:17 12/09/19 25 12/09/2024 COMPR EHENS GIANCARLO METAB OLIC PANEL calcium 9.4 mg/dL 8.6-10 .2 normal Not Available [address], [address], 12/09/2024 11:34:17 12/09/19 25 12/09/2024 COMPR EHENS GIANCARLO METAB OLIC PANEL protein, total 7.5 g/dL 6.1-8. 1 normal Not Available [address], [address], 12/09/2024 11:34:17 12/09/19 25 12/09/2024 COMPR EHENS GIANCARLO METAB OLIC PANEL albumin 4.6 g/dL 3.6-5. 1 normal Not Available [address], [address], 12/09/2024 11:34:17 12/09/19 25 12/09/2024 COMPR EHENS GIANCARLO METAB OLIC PANEL globulin 2.9 g/dL_ (calc ) 1.9-3. 7 normal Not Available [address], [address], 12/09/2024 11:34:17 12/09/19 25 12/09/2024 COMPR EHENS GIANCARLO METAB OLIC PANEL albumin/glob ulin ratio 1.6 (calc ) 1.0-2. 5 normal Not Available [address], [address], 12/09/2024 11:34:17 12/09/19 25 12/09/2024 COMPR EHENS GIANCARLO METAB OLIC PANEL bilirubin, total 0.3 mg/dL 0.2-1. 2 normal Not Available [address], [address], 12/09/2024 11:34:17 12/09/19 25 12/09/2024 COMPR EHENS GIANCARLO METAB OLIC PANEL alkaline phosphatase 49 U/L 31-125 normal Not Available [facility] [employer] [address], [address], 12/09/2024 11:34:17 12/09/19 25 12/09/2024 COMPR EHENS GIANCARLO METAB OLIC PANEL AST 17 U/L 10-30 normal Not Available [address], [address], 12/09/2024 11:34:17 12/09/19 25 12/09/2024 COMPR EHENS GIANCARLO METAB OLIC PANEL ALT 20 U/L 6-29 normal Not Available [address], [address], 12/09/2024 11:34:17 12/09/19 25 12/09/2024 INSUL IN insulin 16.9 uIU/m L normal Refer ence Range < or = 18.4 Risk: Optim al < or = 18.4 Moder ate NA High >18.4 Adult cardi ovasc ular event risk categ ory cut point s (opti mal, moder ate, high) are based on Insul in Refer ence Inter abida studi es perfo rmed at [facility] in 2021. Not Available [facility] [employer] [address], [address], 12/09/2024 11:34:18 12/09/19 25 12/09/2024 PROLA CTIN prolactin 5.0 NG/mL normal Refer ence Range Femal es Non-p regna nt 3.0-3 0.0 Pregn ant 10.0- 209.0 Postm enopa usal 2.0-2 0.0 Not Available [employer] [address], [address], 12/09/2024 11:34:20 12/09/19 25 12/09/2024 VITAM IN B12/F OLATE , SERUM PANEL vitamin B12 388 pg/mL 200-11 00 normal Pleas e Note: Altho ugh the refer ence range for vitam in B12 is 200-1 100 pg/mL , it has been repor jose de jesus that betwe en 5 and 10% of patie nts with value s betwe en 200 and 400 pg/mL may exper ience neuro psych iatri c and hemat ologi c abnor malit ies due to occul t B12 defic iency ; less than 1% of patie nts with value s above 400 pg/mL will have sympt oms. Not Available [employer] [address], [address], 12/09/2024 11:34:21 12/09/19 25 12/09/2024 VITAM IN B12/F OLATE , SERUM PANEL folate, serum 9.8 NG/mL normal Refer ence Range Low: <3.4 Borde rline : 3.4-5 .4 Dulce Maria l: >5.4 Not Available [facility] [address] [place], [address], 12/09/2024 11:34:21 12/09/19 25 12/09/2024 PROGE STERO NE progesterone 0.5 NG/mL normal Refer ence Range s Femal e Folli cular Phase < 1.0 Lutea l Phase 2.6-2 1.5 Post menop ausal < 0.5 Pregn bere 1st Trime ster 4.1-3 4.0 2nd Trime ster 24.0- 76.0 3rd Trime ster 52.0- 302.0 Not Available [employer] [address] [address] [place], [address], 12/09/2024 11:34:22 12/09/19 25 12/09/2024 ESTRA DIOL estradiol 54 pg/mL normal Refer ence Range Folli cular Phase : 19-14 4 Mid-C ycle: 64-35 7 Lutea l Phase : 56-21 4 Postm enopa usal: < or = 31 Refer ence range estab lishe d on post- puber betty patie nt popul ation . No pre-p ubert al refer ence range estab lishe d using this assay . For any patie nts for whom low Estra diol level s are antic ipate d (e.g. males , pre-p ubert al child david and hypog onada l/pos t-men opaus al femal es), the [facility] Estra diol, Ultra sensi tive, LCMSM S assay is recom savana d (orde r code 41651 ). Plemiki e note: patie nts being treat ed with the drug fulve stran t (Fasl odex( R)) have demon strat ed signi fican t inter feren ce in immun oassa y metho ds for estra diol measu remen t. The cross react ivity could lead to false ly eleva jose de jesus estra diol test resul ts leadi ng to an inapp ropri ate clini sapna asses sment of estro gen statu s. [facility] order code [id number] -Estr adiol , Ultra sensi tive LC/MS /MS demon strat es negli gible cross react ivity with fulve stran t. Not Available [employer] [address] [place], [address], 12/09/2024 11:34:23 12/09/19 25 12/09/2024 VITAM IN D,25- OH,TO BETTY,I A vitamin D,25-oh,tota l,ia 24 NG/mL 30-100 low Vitam in D Statu s 25-OH Vitam in D: Defic iency : <20 ng/mL Insuf ficie ncy: 20 - 29 ng/mL Optim al: > or = 30 ng/mL For 25-OH Vitam in D testi ng on patie nts on D2-clark pplem entat ion and patie nts for whom quant itati on of D2 and D3 fract ions is requi red, the [facility] Assur eD(TM ) 25-OH VIT D, (D2,D 3), LC/MS /MS is recom savana d: order code [id number] (charla ents >2yrs ). See Note 1 Note 1 For addit ional infor marcos taylor refer to http: //[facility] geri Tony stDia gnost ics.c om/fa q/FAQ 199 (This link is being provi ded for infor layla marques/ educbeverley de oliveira purpo ses only. ) Not Available [facility] [employer] [address], [address], 12/09/2024 11:34:24 12/09/19 25 12/09/2024 TSH W/REF TIANNA TO FT4 TSH w/reflex to FT4 0.28 mIU/L low Refer ence Range > or = 20 Years 0.40- 4.50 Pregn bere Range s First trime ster 0.26- 2.66 Secon d trime ster 0.55- 2.73 Third trime ster 0.43- 2.91 Not Available [address], [address], 12/09/2024 11:34:25 12/09/19 25 12/09/2024 T4, FREE T4, free 1.2 NG/dL 0.8-1. 8 normal Not Available [facility] [employer] [address], [address], 12/09/2024 11:34:27 12/09/19 25 12/09/2024 HEMOG LOBIN A1C hemoglobin A1C 5.5 %_of_ total _HGB <5.7 normal For the purpo se of screlouann vargasg for the prese nce of diabe lorenzo: <5.7% Consi stent with the absen ce of diabe lorenzo 5.7-6 .4% Consi stent with incre ased risk for diabe lorenzo (pred iabet es) > or =6.5% Consi stent with diabe lorenzo This assay resul t is consi stent with a decre ased risk of diabe lorenzo. Curre ntly, no conse nsus exist s chano taylor use of hemog lobin A1c for diagn osis of diabe lorenzo in child david. Accor ding to Ameri can Diabe lorenzo Assoc iatio n (ADA) guide lines , hemog lobin A1c <7.0% repre sents optim al contr ol in non-p regna nt diabe tic patie nts. Diffe rent metri cs may apply to speci fic patie nt popul ation s. [facility] ards of Medic al Care in Diabe lorenzo(A DA). Not Available [employer] [facility] [address] [place] [address], [address], 12/09/2024 11:34:27 Result Notes None recorded. Problems Name Problem SNOMED Code Status Onset Date Resolution Date Notes Provider Name and Address Organization Details Recorded Time Bipolar disorder 17253078 Active 2015 dx by therapist at [place] Not Available [facility] 3 09:18:08 Depressiv e disorder 77734152 Active 2015 Not Available [facility] 3 09:18:08 Attention deficit hyperacti vity disorder 006524291 Active 2015 Not Available [facility] 3 09:18:08 Post-trau matic stress disorder 16773245 Active 2015 Not Available [facility] 3 09:18:08 Anxiety 30362008 Active 2015 Not Available [facility] 3 09:18:08 Rosacea 171600047 Active 2022 Jocy Sandoval MD [address] [address], [place], [address] , [employer] [facility] [employer] 3 12:17:37 Fatigue 29140185 Active 2024 LUCY Oliva [address], [place], [address] , [facility] [employer] 5 15:44:43 Polycysti c ovary syndrome 251536081 Active 2024 LUCY Oliva [address] [facility], [facility] [address], [place], [address] , [facility] [employer] [facility] 5 15:45:34 Borderjuana lew personali ty disorder 06505966 Active 2024 LUCY Oliva [address] [facility], [facility] [address], [place], [address] , [facility] [employer] [facility] 5 09:54:55 Problem Notes None recorded. Medical Equipment None Reported. Allergies No known drug allergies Medications Name Sig Start Date Stop Date Status Note LastModified by Organization Details LastModified Time amoxicillin 500 mg capsule TAKE 1 CAPSULE BY MOUTH EVERY 12 HOURS FOR 10 DAYS 12/02 completed Not Available Not Available Not Available venlafaxine ER 37.5 mg capsule,ext ended release 24 hr TAKE 1 CAPSULE BY MOUTH ONCE DAILY 03/17 completed Not Available Not Available Not Available venlafaxine ER 75 mg capsule,ext ended release 24 hr Take 1 capsule every day by oral route. active Not Available Not Available No t Available venlafaxine 75 mg tablet TAKE 1 TABLET BY MOUTH ONCE DAILY 08/02 completed Not Available Not Available Not Available azithromyci n 250 mg tablet TAKE 4 TABLETS BY MOUTH ONE TIME ONLY 04/17 completed Not Available Not Available Not Available Lidocaine Viscous 2 % mucosal solution APPLY 1 2 ML TO MUCOUS MEMBRANE FOUR TIMES DAILY NEEDED FOR PAIN 05/24 completed Not Available Not Available Not Available fluconazole 150 mg tablet 05/24 completed Not Available Not Available Not Available benzonatate 200 mg capsule TAKE 1 CAPSULE BY MOUTH THREE TIMES DAILY NEEDED FOR COUGH 08/02 completed Not Available Not Available Not Available hydrocodone 5 mg-acetamin ophen 325 mg tablet TAKE 1 TABLET BY MOUTH EVERY 4 HOURS NEEDED 05/24 completed Not Available Not Available Not Available prednisone 20 mg tablet TAKE 2 TABLETS BY MOUTH ONCE DAILY FOR 5 DAYS 08/02 completed Not Available Not Available Not Available metronidazo le 500 mg tablet 05/24 completed Not Available Not Available Not Available phentermine 37.5 mg tablet TAKE 1 TABLET BY MOUTH ONCE DAILY 12/01 completed Not Available Not Available Not Available acetaminoph en 300 mg-codeine 30 mg tablet 03/17 completed Not Available Not Available Not Available acyclovir 400 mg tablet 03/17 completed Not Available Not Available Not Available sulfamethox azole 800 mg-trimetho prim 160 mg tablet Take 1 tablet every 12 hours by oral route for 3 days. active Not Available Not Available No t Available Adderall XR 20 mg capsule,ext ended release Take 1 capsule every day by oral route. 08/02 completed Not Available Not Available Not Available ketorolac 10 mg tablet TAKE 1 TABLET BY MOUTH EVERY 6 HOURS NEEDED FOR PAIN FOR 5 DAYS 05/24 completed Not Available Not Available Not Available ferrous sulfate 325 mg (65 mg iron) tablet 03/17 completed Not Available Not Available Not Available dextroamphe tamine-amph etamine 20 mg tablet 1 po qAM and 1/2 po qnoon 2024 active 1 po qday Not Available Not Available Not Available promethazin e 25 mg tablet 03/17 completed Not Available Not Available Not Available polymyxin B sulfate 10,000 unit-trimet hoprim 1 mg/mL eye drops INSTILL 1 DROP INTO AFFECTED EYE(S) BY OPHTHALMI C ROUTE EVERY 6 HOURS x 7 days active Not Available Not Available No t Available Adderall XR 10 mg capsule,ext ended release Take 1 capsule every day by oral route. active Not Available Not Available No t Available diclofenac sodium 75 mg tablet,yoana yed release Take 1 tablet twice a day by oral route as needed. active Not Available Not Available No t Available Valtrex 500 mg tablet Take 1 tablet every day by oral route for 30 days. 12/01 completed Not Available Not Available Not Available acyclovir 200 mg capsule Take 1 capsule every day by oral route. 12/08 completed Not Available Not Available Not Available ibuprofen 600 mg tablet 03/17 completed Not Available Not Available Not Available Vitamin D2 1,250 mcg (50,000 unit) capsule 04/17 completed Not Available Not Available Not Available metronidazo le 0.75 % topical gel APPLY A THIN LAYER TO THE AFFECTED AREA(S) TOPICALLY TWO TIMES DAILY IN THE MORNING AND IN THE EVENING. 12/02 completed Not Available Not Available Not Available loratadine 10 mg tablet TAKE 1 TABLET BY MOUTH ONCE DAILY NEEDED FOR ALLERGY SYMPTOMS 05/24 completed Not Available Not Available Not Available dextroamphe tamine-amph etamine ER 15 mg 24hr capsule,ext end release Take 1 capsule every day by oral route. 08/02 completed Not Available Not Available Not Available azithromyci n 500 mg tablet Take 2 tablets every day by oral route for 1 day. 04/17 completed Not Available Not Available Not Available escitalopra m 10 mg tablet TAKE 1 TABLET BY MOUTH ONCE DAILY active Not Available Not Available No t Available Sprintec (28) 0.25 mg-0.035 mg tablet TK 1 T PO D 04/17 completed Not Available Not Available Not Available atomoxetine 40 mg capsule Take 1 capsule every day by oral route. active Not Available Not Available No t Available bupropion HCl XL 300 mg 24 hr tablet, extended release TAKE 1 TABLET BY MOUTH ONCE DAILY active Not Available Not Available No t Available bupropion HCl XL 150 mg 24 hr tablet, extended release TAKE 1 TABLET BY MOUTH ONCE DAILY active Not Available Not Available No t Available Tri-Sprinte c (28) 0.18 mg(7)/0.215 mg(7)/0.25 mg(7)-0.035 mg tablet 1 po qday 08/20 completed Not Available Not Available Not Available Lexapro 5 mg tablet Take 1 tablet every day by oral route. active Not Available Not Available No t Available Gianvi (28) 3 mg-0.02 mg tablet 05/24 completed Not Available Not Available Not Available Rexulti 1 mg tablet TAKE 1 TABLET BY MOUTH ONCE DAILY 12/02 completed Not Available Not Available Not Available Rexulti 0.5 mg tablet 0.5 mg qday x 7 days then 1 mg qday x 7 days then 2 mg thereafte r 04/24 completed Not Available Not Available Not Available COVID-19 test specimen collection TEST DIRECTED 01/05 completed Not Available Not Available Not Available Vitals Date Recorded Body height Body mass index (BMI) Body weight Body temperature Heart rate Oxygen saturation Systolic And Diastolic Provider Name and Address Organization Details Last Updated DateTime 5 160.02 cm 34.4 kg/m2 15859.9 2 g 98.2 [degF] 63 /min 95 % 139/76 mm[Hg] Brianna Carmona RN [facility] [employer] [facility] 5 16:19:59 Date Recorded Body height Body mass index (BMI) Body weight Body temperature Heart rate Oxygen saturation Systolic And Diastolic Provider Name and Address Organization Details Last Updated DateTime 5 160.02 cm 35.4 kg/m2 46419.4 7 g 98.2 [degF] 82 /min 98 % 120/76 mm[Hg] Julisa Anabel [facility] 5 15:41:17 Date Recorded Body height Body mass index (BMI) Body weight Body temperature Heart rate Oxygen saturation Systolic And Diastolic Provider Name and Address Organization Details Last Updated DateTime 5 160.02 cm 35.4 kg/m2 34171.4 7 g 97.7 [degF] 77 /min 99 % 126/88 mm[Hg] Aleksandar RODRIGUEZ [place] [facility] 5 09:49:13 Date Recorded Body height Body mass index (BMI) Body weight Body temperature Heart rate Oxygen saturation Systolic And Diastolic Provider Name and Address Organization Details Last Updated DateTime 4 160.02 cm 32.9 kg/m2 17596.1 8 g 100 [degF] 89 /min 99 % 112/76 mm[Hg] Stefanie Lynn RN [facility] [employer] [facility] 4 16:20:08 Social History Question Answer Notes LastModified by Organizat ion Details LastModified Time Tobacco Smoking Status Never Smoker Not Available [facility] 11/01/2022 09:13:29 What Is Your Level Of Caffeine Consumption? Occasional [id number] Information not available 11/01/2022 How Much Tobacco Do You Chew? None [id number] Information not available 11/01/2022 What Type Of Diet Are You Following? REGULAR [id number] Information not available 11/01/2022 Which Illicit Or Recreational Drugs Have You Used? No [id number] Information not available 11/01/2022 What Was The Date Of Your Most Recent Tobacco Screening? 12/08/2024 [email or web address] Information not available 12/08/2024 How Much Tobacco Do You Smoke? No [id number] Information not available 11/01/2022 Sex: Unknown Functional Status Question Answer Note LastModified by Organizat ion Details LastModified Time What is your level of alcohol consumption? Occasional [id number] Information not available 11/01/2022 Do you or have you ever used smokeless tobacco? Never used smokeless tobacco [id number] Information not available 11/01/2022 Do you or have you ever used e-cigarettes or vape? Never used electronic cigarettes [id number] Information not available 11/01/2022 What is your exercise level? Occasional [id number] Information not available 11/01/2022 Mental Status None recorded. Family History Relationship Description Onset Age of this Age Resolved Age Notes LastModified by Organization Details LastModified Time Father Diabetes mellitus [id number] Not available 11/01/2022 09:13:38 Father Bipolar disorder [id number] Not available 11/01/2022 09:13:38 Father Attention deficit hyperactivit y disorder [id number].019 [id number] Not available 11/01/2022 09:13:38 Mother Bipolar disorder [id number] Not available 11/01/2022 09:13:38 Mother Attention deficit hyperactivit y disorder [id number] [id number] Not available 11/01/2022 09:13:38 Brother Bipolar disorder [id number].243 [id number] Not available 11/01/2022 09:13:38 Brother Attention deficit hyperactivit y disorder [id number] Not available 11/01/2022 09:13:39 Maternal Uncle Malignant neoplasm of colon MIGRATION.913 [id number] Not available 11/01/2022 09:13:39 Medical History No medical history recorded. Gynecological History Statement/Question Response Menses Monthly Y Duration of Flow (days) 5 Current Control Method Tubal Ligat ion Age at Menarche 13 Flow Moderate Date of LMP 01/09/2021 Breast Problems no Obstetrics History GPAL:G 0 P 0 0 0 0 Immunizations Vaccine Type Date Status Note Provider Nam e and Address Organization Details Recorded Time Hep B, adolescent or pediatric 8 completed Not Available [facility] 05/14/2025 09:29:38 Hib-Hep B 8 completed Not Available [facility] 05/14/2025 09:29:38 DTaP 8 completed Not Available [facility] 05/14/2025 09:29:38 OPV, trivalent 8 completed Not Available [facility] 05/14/2025 09:29:38 Hib, unspecified formulation 8 completed Not Available [facility] 05/14/2025 09:29:38 DTaP 8 completed Not Available [facility] 05/14/2025 09:29:38 OPV, trivalent 8 completed Not Available [facility] 05/14/2025 09:29:38 OPV, trivalent 8 completed Not Available [facility] 05/14/2025 09:29:38 DTaP 8 completed Not Available [facility] 05/14/2025 09:29:38 Hib-Hep B 8 completed Not Available [facility] 05/14/2025 09:29:38 MMR 9 completed Not Available [facility] 05/14/2025 09:29:38 DTaP 9 completed Not Available [facility] 05/14/2025 09:29:38 Hib, unspecified formulation 9 completed Not Available [facility] 05/14/2025 09:29:38 IPV 3 completed Not Available [facility] 05/14/2025 09:29:38 MMR 3 completed Not Available [facility] 05/14/2025 09:29:38 DTaP 3 completed Not Available [facility] 05/14/2025 09:29:38 HPV, quadrivalent 9 completed Not Available [facility] 05/14/2025 09:29:38 HPV, quadrivalent 9 completed Not Available [facility] 05/14/2025 09:29:38 influenza, split (incl. purified surface antigen) 9 completed Not Available [facility] 05/14/2025 09:29:38 Hep A, ped/adol, 2 dose 1 completed Not Available [facility] 05/14/2025 09:29:38 HPV, quadrivalent 1 completed Not Available [facility] 05/14/2025 09:29:38 Meningococcal MCV4O 1 completed Not Available [facility] 05/14/2025 09:29:38 Tdap 5 completed Not Available [facility] 05/14/2025 09:29:38 meningococcal MCV4P 5 completed Not Available [facility] 05/14/2025 09:29:38 Tdap 8 completed Not Available [facility] 11/01/2022 09:22:01 Influenza, split virus, quadrivalent, PF 7 completed Not Available [facility] 11/01/2022 09:22:01 Influenza, split virus, quadrivalent, preservative 6 completed Not Available [facility] 11/01/2022 09:22:01 Past Encounters Encounter ID Performer Location Encounter Start Date Encounter Closed Date Diagnosis/Indication Diagnosis SNOMED-CT Code Diagnosis ICD10 Code Diagnosis IMO Codes Diagnosis Note [id number] Jocy Sandoval MD [facility] Primary [facility] [place] [address] [facility] [address] [place] [address] 02/08/2021 00:00:00 02/08/2021 08:21:15 [id number] Jocy Sandoval MD [facility] Primary [facility] [place] [address] [facility] [address] [place] [address] 12/01/2021 00:00:00 12/01/2021 09:40:55 [id number] Jocy Sandoval MD [facility] Primary [facility] [place] [address] [facility] [address] [place] [address] 01/05/2022 00:00:00 01/27/2022 13:22:28 [id number] Jocy Sandoval MD [facility] Primary [facility] [place] [address] [facility] [address] [place] [address] 02/02/2022 00:00:00 02/08/2022 10:23:13 [id number] Jocy Sandoval MD [facility] Primary [facility] [place] [address] [facility] [place] [address] 04/24/2022 00:00:00 04/24/2022 08:31:38 [id number] Jocy Sandoval MD [facility] Primary [place] [address] [facility] [address] [place] [address] 08/02/2022 00:00:00 08/02/2022 08:39:44 [id number] Jocy Sandoval MD [facility] Primary Care [place] [address] [facility] [address] [place] [address] 11/21/2022 12:02:30 11/21/2022 12:20:25 Attention deficit hyperactivity disorder 987286353 F90.9 doing well on adderall 20 mg po qAM Pt understand s this medication has risk for abuse/depe ndence and agrees to take it only as prescribed and to guard from loss/theft [place] prescript[place] monitoring website reviewedf/ u in 6 months or sooner if needed Rosacea [id number] L71.9 protect skin from sun exposurefo cus on lotions/so aps/produc ts for sensitive skinderm referralme tro gel bid [id number] Jocy Sandoval MD [facility] Primary Care [place] [address] [facility] [address] [place] [address] 06/04/2023 12:11:18 06/04/2023 12:45:45 Attention deficit hyperactivity disorder 910603456 F90.9 doing well on adderall 20 mg 1.5 tabs po qAMPt understand s this medication has risk for abuse/depe ndence and agrees to take it only as prescribed and to guard from loss/theft [place] prescript[place] website reviewedf/ u in 6 months or sooner if needed [id number] Jocy Sandoval MD [facility] Primary Care [place] [address] [place] [address] [address] [place] [address] 12/03/2023 16:18:40 12/03/2023 16:49:50 Attention deficit hyperactivity disorder 874235405 F90.9 doing well on adderall 20 mg 1.5 tabs po qAMPt understand s this medication has risk for abuse/depe ndence and agrees to take it only as prescribed and to guard from loss/theft [place] prescript[place] website reviewedf/ u in 6 months or sooner if needed [id number] LUCY Andrade [facility] Primary [address] [place] [address] 02/13/2024 16:09:16 02/13/2024 16:34:50 [id number] LUCY Andrade [facility] Primary [address] [place] [address] 06/03/2024 16:07:00 06/03/2024 16:30:01 Attention deficit hyperactivity disorder 108599026 F90.9 Long-term drug therapy 717012730 Z79.899 Pt denies any lending, selling, or borrowing of medication s. Denies any cp, sob, palpitatio ns, or unusual weight loss.Revie wed controlled substance agreement requiremen ts. Refill given.[place] PDMP checked today. [id number] [facility] [address] [place] [address] 09/09/2024 16:13:10 09/09/2024 16:31:33 Attention deficit hyperactivity disorder 116876792 F90.9 Long-term drug therapy 071115310 Z79.652 [id number] LUCY Oliva [address] [place] [address] 12/08/2024 15:31:41 12/08/2024 15:50:50 Fatigue 70476973 R53.83 Polycystic ovary syndrome 034294904 E28.2 Family his tory of diabetes mellitus 800125180 Z83.3 [id number] LUCY Oliva [address] [place] [address] 05/14/2025 09:28:22 05/14/2025 10:05:15 Attention deficit hyperactivity disorder 131444837 F90.[address] refill: 03/28/25UD S UTD (09/2024)l ast appt: 05/14/25ne xt appt: 3 months0 Borderline personality disorder 33717808 F60.3 04715 seeing psych, started on Lexapro 05/13/25, follows up in one month. Health Concerns Section Related Observation LastModified by Organization Detai ls LastModified Time None Recorded Concern Status LastModified by Organization Details LastModified Time None Recorded Advance Directives Directive None Recorded Payers Insurance Date Sequence Insurance Name Policy Number Policy Cha Covered Member ID Cha Member ID Guarantor Name 06/04/2023 1 [facility] [id number] Janes Mendoza Sarah [id number] Janes Mendoza Sarah 05/14/2025 1 [facility] [place] Janes Mendoza Sarah [id number] Janes Kelly Sarah 09/09/2024 1 *SELF PAY* Damion Smith 05/14/2025 1 *SELF PAY* Damion fernandez Kelly Smith Notes Date Note Type Note Provider Name and Address Organization Details Recorded Time 06/03/2024 text/html pt is here for med f/u LUCY Andrade [employer], [place], [place], [address], [employer] 06/03/2024 16:36:43 09/09/2024 text/html ROS as noted in the HPI Patient is a 28 year old female that presents to the office for 3 month follow up. Patient is doing well on current medications, no concerns at this time. LUCY Oliva [facility], [place], [address], [employer] 09/09/2024 22:44:54 12/08/2024 text/html ROS as noted in the HPI Patient is a 29 year old female that presents to the office for follow up. Patient reports she is doing well on current medications. Patient would like to have labs drawn for possible PCOS. Patient reports history of ovarian cysts as a teenager, has not had issues since age 20. Patient reports increased fatigue, inability to lose weight, hair thinning, facial hair, abnormal periods (no control). LUCY Oliva [facility], [place], [address], [employer] 12/08/2024 15:50:28 05/14/2025 text/html Patient is a 29 year old female that presents to the office for 3 month medication follow up. Patient reports she is doing well on current dose of Adderall. Was diagnosed with borderline personality disorder yesterday at psychiatrist, started on Lexapro, follows up in one month. WILDER Oliva-[facility] [address] [facility], [facility] [address], [place], [address], [facility] [employer] [facility] 05/14/2025 09:58:42 OBGyn Episode No OBEpisode recorded.
[2025-09-02 09:37] VITALS: BP 120/82; PULSE 77; RESP 16; TEMP 36.6; O2SAT 98
--- NOTE | 2025-09-02 09:53 | ED_ITS ---
HPI - URI/Sore Throat General Chief Complaint: Upper Respiratory Infection Stated Complaint: throat pain Time Seen by Provider: 09/02/25 09:50 Source: patient and RN notes reviewed Mode of arrival: ambulatory Limitations: no limitations History of Present Illness HPI Narrative: 29-year-old female patient presents today with a 2 day history of sore throat, postnasal drip, rhinorrhea. Denies fever cough, known sick contacts. Currently rates her pain 5/10 and has tried no OTC treatment prior to arrival. Related Data Home Medications ?Medication ?Instructions ?Recorded ?Confirmed ?Last Taken ?Type dextroamphetamine-amphetamine ER 20 mg PO DAILY 08/01/23 Unknown History 20 mg 24hr capsule,extend release (Adderall XR) escitalopram oxalate 5 mg tablet mg 09/02/25 Unknown History Allergies Allergy/AdvReac Type Severity Reaction Status Date / Time Oyster Allergy Severe HIVES,THROAT Uncoded 08/01/23 19:34 SWELLS PMF Past Medical History Medical History (Updated 09/02/25 @ 10:13 by Apolonia Cabrera APRN, WILDER) Bipolar 1 disorder Depression Anxiety Family History Family History Father Diabetes mellitus Social History Social History Smoking status: Never smoker Substance use: never Gender identity (if verbalized by the patient): Female Spiritual care concerns: No Comments At time of signature, I have reviewed and agree with nursing past medical, surgical, social and family history unless otherwise noted. Please see nursing chart for further information. There is no relevant family history pertinent to the presenting complaint Exam Narrative: GENERAL: Mildly ill-appearing, well-nourished, and in no acute distress. HEAD: Normocephalic, atraumatic. EYES: EOMI. No redness or drainage. Conjunctivae normal. ENT: Mucous membranes pink and moist. Nares congested with rhinorrhea. TMs normal bilaterally. Throat erythematous. Tonsils 3+ without exudate. Uvula midline. NECK: Normal AROM. Supple. No lymphadenopathy. CHEST: No respiratory distress. Clear to auscultation. HEART: Regular rate and rhythm. No murmur appreciated. EXTREMITIES: Normal range of motion. No edema. SKIN: Warm, dry, no rash. Capillary refill normal. Normal skin turgor. NEURO: No focal deficits. Alert and oriented x3. Gait steady. PSYCH: Normal affect. No signs of depression or anxiety. Course Course Level of Care: Express Care Visit Vital Signs Vital signs: Vital Signs Temperature 98 F 09/02/25 09:37 Pulse Rate 77 09/02/25 09:37 Respiratory Rate 16 09/02/25 09:37 Blood Pressure 120/82 09/02/25 09:37 Pulse Oximetry 98 09/02/25 09:37 Oxygen Delivery Room Air 09/02/25 09:37 Temperature 98 F 09/02/25 09:37 Pulse Rate 77 09/02/25 09:37 Respiratory Rate 16 09/02/25 09:37 Blood Pressure 120/82 09/02/25 09:37 Pulse Oximetry 98 09/02/25 09:37 Oxygen Delivery Room Air 09/02/25 09:37 Reviewed [facility] MDM Narrative Medical decision making narrative: 29-year-old female patient presents today with a 2 day history of sore throat, postnasal drip, rhinorrhea. Denies fever cough, known sick contacts. Currently rates her pain 5/10 and has tried no OTC treatment prior to arrival. Upon exam, patient is mildly ill appearing with congestion, rhinorrhea, erythematous throat with 3+ tonsils. Influenza negative, COVID negative, rapid strep negative. Culture pending. Symptoms likely viral in etiology. Discussed hptx-bsh-ziquwks medication use and duration of illness. No prescription medications indicated at this time. Anticipatory guidance given. Patient agrees with plan. Vital signs stable. Anticipatory guidance given. Differential Diagnosis Differential Diagnosis: URI, pharyngitis, COVID influenza, strep throat Lab Data [facility] Lab Attestation statement: I personally reviewed the patient's lab results. Labs: Lab Results 09/02/25 Range/Units 09:57 POC Influenza A Ag Negative (Negative) POC Influenza B Ag Negative (Negative) POC SARS CoV-2 Ag Negative (Negative) POC Grp A Strep Screen Negative (Negative) Critical Care Time Critical Care Time Critical Care Time: No Discharge Plan Discharge Clinical Impression: Upper respiratory infection Qualifiers: URI type: unspecified URI Qualified Code(s): J06.9 - Acute upper respiratory infection, unspecified Patient Disposition: Home Condition: Stable Instructions: Upper Respiratory Infection (DC) Additional Instructions: Your influenza, COVID, and rapid strep swab were negative today at [facility]. You will be notified in a few days if the culture comes back positive for strep, and appropriate antibiotics will be called in for you at that time. Your symptoms are likely due to a viral illness, which is not treated with ant ibiotics. Viral symptoms can be present for up to 7-10 days. Take Tylenol or ibuprofen for fever or pain. Rest and stay hydrated. Follow up with your PCP in 7 days if symptoms are not improving. Go to the ER immediately if you have any difficulty breathing or swallowing. Patient Language: Guatemalan Prescriptions: No Action dextroamphetamine-amphetamine [Adderall XR] 20 mg Capsule,Extended Release 24hr 20 mg PO DAILY escitalopram oxalate 5 mg tablet Follow-up/Referrals: Jasvir,Ilana Staley RETAIL CONSULTANT [Primary Care Provider, Unknown] Time of Disposition: 10:11
[2025-09-02 09:58] LABS: EDCOVIDSCREEN Negative (Negative); EDINFLUASCREEN Negative (Negative); EDINFLUBSCREEN Negative (Negative); EDSTREPNEGPOS1 Negative (Negative)
== END 2025-09-02 10:15 | disposition home or self-care (01) ==
PROVIDERS: Emergency Provider Nurse Practitioner; PCP Nurse Practitioner Family
DX: J06.9 Acute upper respiratory infection, unspecified (principal); F41.8 Other specified anxiety disorders; F31.9 Bipolar disorder, unspecified; Z20.822 Contact with and (suspected) exposure to COVID-19
CPT/HCPCS: 87081; 87426; 87804; 87880; 99213; G0463